=== PATIENT | male | born 1990 | race Caucasian/White ===

== ENCOUNTER 2018-04-18 16:03 | Emergency (ER) | payer MEDICAID ==
--- NOTE | 2018-04-18 16:41 | EDM.PDOC ---
ED HPI GENERAL MEDICAL PROBLEM - General Chief Complaint: Respiratory Problem Stated Complaint: SOB Time Seen by Provider: 04/18/18 16:09 Source of Information: Reports: Patient History Limitations: Reports: No Limitations - History of Present Illness INITIAL COMMENTS - FREE TEXT/NARRATIVE: HISTORY AND PHYSICAL: History of present illness: Patient is a 28-year-old male who presents to the emergency room with complaints of difficulty breathing 4 days. Dry cough associated with this. Frequently able to "cough up clear stuff". He denies any fever, chills, chest pain, abdominal pain, nausea, vomiting, diarrhea or constipation. He is a daily smoker. Review of systems: As per history of present illness and below otherwise all systems reviewed and negative. Past medical history: As per history of present illness and as reviewed below otherwise noncontributory. Surgical history: As per history of present illness and as reviewed below otherwise noncontributory. Social history: No reported history of drug or alcohol abuse. Family history: As per history of present illness and as reviewed below otherwise noncontributory. Physical exam: General: Well-developed and well-nourished 28-year-old male. Alert and oriented. Nontoxic appearing and in no acute distress. HEENT: Atraumatic, normocephalic, pupils equal and reactive bilaterally, negative for conjunctival pallor or scleral icterus, mucous membranes moist, throat clear, neck supple, nontender, trachea midline. No drooling or trismus noted. No meningeal signs Lungs: Slightly diminished with poor air exchange to posterior bases bilaterally , breath sounds equal bilaterally, chest nontender. Heart: S1S2, regular rate and rhythm without overt murmur Abdomen: Soft, nondistended, nontender. Negative for masses or hepatosplenomegaly. Negative for costovertebral tenderness. Pelvis: Stable nontender. Genitourinary: Deferred. Rectal: Deferred. Skin: Intact, warm, dry. No lesions or rashes noted. Extremities: Atraumatic, negative for cords or calf pain. Neurovascular unremarkable. Neuro: Awake, alert, oriented. Cranial nerves II through XII unremarkable. Cerebellum unremarkable. Motor and sensory unremarkable throughout. Exam nonfocal. Notes: Patient's physical examination is within normal limits slightly diminished lung sounds posterior bilaterally. Chest x-ray shows no acute findings. We'll give the patient a proventil inhaler to use PRN. Medrol dosepak. Encouraged to stop smoking. Supportive care measures were reviewed and discussed. He voices understanding and is agreeable to plan of care. He denies any further questions at this time. Diagnostics: CXR Therapeutics: [] Impression: Bronchitis Plan: 1. Please quit smoking 2. Use the inhaler as needed. Medrol Dosepak (steriod) as directed. 3. Follow up with your primary care provider in the next few days. Return to the ED as needed and as discussed. Definitive disposition and diagnosis as appropriate pending reevaluation and review of above. Duration: Day(s): (4) - Related Data Allergies Allergy/AdvReac Type Severity Reaction Status Date / Time No Known Allergies Allergy Verified 04/18/18 16:15 Home Meds: Home Meds . [No Known Home Meds] 04/18/18 [History] Past Medical History HEENT History: Reports: None Cardiovascular History: Reports: None Respiratory History: Reports: None Gastrointestinal History: Reports: None Genitourinary History: Reports: None Musculoskeletal History: Reports: None Neurological History: Reports: None Psychiatric History: Reports: None Endocrine/Metabolic History: Reports: None Hematologic History: Reports: None Immunologic History: Reports: None Oncologic (Cancer) History: Reports: None Dermatologic History: Reports: None - Past Surgical History Head Surgeries/Procedures: Reports: None HEENT Surgical History: Reports: None Cardiovascular Surgical History: Reports: None Respiratory Surgical History: Reports: None GI Surgical History: Reports: Appendectomy Male Surgical History: Reports: None Endocrine Surgical History: Reports: None Neurological Surgical History: Reports: None Musculoskeletal Surgical History: Reports: None Oncologic Surgical History: Reports: None Dermatological Surgical History: Reports: None Social & Family History - Family History Family Medical History: Noncontributory - Tobacco Use Smoking Status *Q: Current Every Day Smoker Years of Tobacco use: 10 Packs/Tins Daily: 0.5 - Caffeine Use Caffeine Use: Reports: Coffee - Recreational Drug Use Recreational Drug Use: No ED ROS GENERAL - Review of Systems Review Of Systems: ROS reveals no pertinent complaints other than HPI. ED EXAM, GENERAL - Physical Exam Exam: See Below (See dictation) Course - Vital Signs Last Recorded V/S: Last Vital Signs Temp 98.2 F 04/18/18 16:15 Pulse 76 04/18/18 16:15 Resp 18 04/18/18 16:15 BP 118/80 04/18/18 16:15 Pulse Ox 96 04/18/18 16:15 - Orders/Labs/Meds Orders: Active Orders 24 hr Category Date Time Status Chest 2V [CR] Stat Exams 04/18/18 16:09 Taken Departure - Departure Time of Disposition: 16:59 Disposition: Home, Self-Care 01 Clinical Impression: Bronchitis - Discharge Information Instructions: Acute Bronchitis, Adult, [id number] Referrals: PCP,None [Primary Care Provider] - Forms: ED Department Discharge Additional Instructions: The following information is given to patients seen in the emergency department who are being discharged to home. This information is to outline your options for follow-up care. We provide all patients seen in our emergency department with a follow-up referral. The need for follow-up, as well as the timing and circumstances, are variable depending upon the specifics of your emergency department visit. If you don't have a primary care physician on staff, we will provide you with a referral. We always advise you to contact your personal physician following an emergency department visit to inform them of the circumstance of the visit and for follow-up with them and/or the need for any referrals to a consulting specialist. The emergency department will also refer you to a specialist when appropriate. This referral assures that you have the opportunity for follow-up care with a specialist. All of these measure are taken in an effort to provide you with optimal care, which includes your follow-up. Under all circumstances we always encourage you to contact your private physician who remains a resource for coordinating your care. When calling for follow-up care, please make the office aware that this follow-up is from your recent emergency room visit. If for any reason you are refused follow-up, please contact the [facility] Emergency Department at and asked to speak to the emergency department charge nurse. [facility] [address] [place] [phone] 1. Please quit smoking 2. Use the inhaler as needed. Medrol Dosepak (steriod) as directed. 3. Follow up with your primary care provider in the next few days. Return to the ED as needed and as discussed. - My Orders Last 24 Hours: My Active Orders 04/18/18 16:09 Chest 2V [CR] Stat - Assessment/Plan Last 24 Hours: My Active Orders 04/18/18 16:09 Chest 2V [CR] Stat
--- NOTE | 2018-04-19 09:49 | CR ---
EXAM DATE: 04/18/18 PATIENT'S AGE: 28 Patient: CRYSTAL ANDRES Facility: [place], [place] Site . Site : 1990 Study: XRay Chest [id number] 4:40:21 PM Ordering Physician: Doctor Granados Final Report: Indication: Shortness of breath Technique: PA and lateral chest radiograph Comparison: None available Findings: Normal heart, mediastinum, lungs, pleura, and bones. Impression: No acute findings in the chest. Dictated by Moe Burciaga MD @ Apr 18 2018 4:50PM (Electronic Signature) Report Signed by Proxy. JEAN
== END 2018-04-18 17:17 | disposition home or self-care (01) ==
LOC: MW.ED 16:03
DX: J40 Bronchitis, not specified as acute or chronic (principal); F17.210 Nicotine dependence, cigarettes, uncomplicated
CPT/HCPCS: 71046; 71046-26; 99284